=== PATIENT | female | born 1975 | race Caucasian/White ===

== ENCOUNTER 2016-10-09 12:24 | Day surgery (SDC) | payer OTHER ==
[~2016-10-09] VITALS: Ht 167.6 cm; Wt 86.4 kg
[~2016-10-09 12:24] MED LIST: FURO20TA3 PO; LORA10TA3 PO; METF500T4 PO; OMEG1CAP2 PO; OMEP20CA16 PO; RIFA550T4 PO; SPIR50TA PO
[2016-10-09 13:11] VITALS: Ht 167.6 cm; Wt 86.4 kg
[2016-10-09 13:36] VITALS: BP 99/62; PULSE 64; RESP 16
[2016-10-09] MEDS ORDERED: PROPOFOL 40 ML ONE (15:17)
[2016-10-09 16:07] VITALS: BP 123/75; PULSE 78
--- NOTE | 2016-10-09 20:57 | GILP ---
DATE OF PROCEDURE: 10/09/2016 NAME OF PROCEDURE: Esophagogastroduodenoscopy with biopsies. SURGEON: Corey Michelle MD HISTORY AND INDICATIONS: The patient is being evaluated for history of cirrhosis of liver, esophage al varices surveillance. PREMEDICATION: Monitored anesthesia care by anesthesiologist. INSTRUMENT USED: Olympus panendoscope. TECHNIQUE: After informed consent, with the patient/relatives understanding the procedure, its peg cations, potential risks and complications including but not limited to allergic reaction, bleeding, perforation or infection, and after all pertinent questions were answered to the patients satisfact ion, the patient/relatives signed witnessed informed consent. Following this, premedication was administered slowly IV push under careful cardiovascular and respi ratory monitoring with pulse oximetry, automatic blood pressure and vehicle monitor technician. Once the sedative effect was achieved the patient was place in the left lateral decubitus, the panen doscope was introduced and advanced under visual control. Careful examination of the upper gastrointestinal tract both on insertion as well as withdrawal of t he instrument disclosed the following findings: ESOPHAGUS: The esophagus is remarkable for presence of esophageal varices graded as II/IV. No stig hidalgo of recent bleeding, no banding required. STOMACH: Upon entrance to stomach, air was insufflated. The gastric light distended normally. The re is erythema, edema and congestion consistent with portal hypertensive gastropathy. Biopsies were obtained to rule out the possibility of H. pylori infection. PYLORUS: The pylorus appears patent and within normal limits, with no evidence of gastric outlet ob struction. DUODENUM: The duodenal mucosa was carefully examined in the duodenal bulb as well as the second por tion of the duodenum and appears unremarkable with no evidence of duodenitis, ulcer or neoplasm. The instrument was then withdrawn. The patient tolerated the procedure well and was transfer out of the endoscopy suite awake and in good condition to continue recovery under observation. IMPRESSION: 1. Grade II/IV esophageal varices with no stigmata. No therapeutic intervention required. 2. Portal gastropathy versus gastritis, rule out Helicobacter pylori infection. Biopsies obtained. PLAN: The patient will be continued on PPIs. Pathology will be reviewed as soon as available. Joan veillance EGD in 6 months is recommended. Dictated By: COREY MICHELLE MS/MALACHI Conf#: [id number] DID#: [id number]
== END 2016-10-09 16:23 | disposition home or self-care (01) ==
LOC: GIL 12:24
PROVIDERS: ATTEND Internal Medicine Gastroenterology
DX: I85.00 Esophageal varices without bleeding (principal); E11.9 Type 2 diabetes mellitus without complications
CPT/HCPCS: 43239; 82962; 88305; Z7610

== ENCOUNTER 2017-04-18 12:59 | Day surgery (SDC) | payer OTHER ==
[~2017-04-18] VITALS: Ht 167.6 cm; Wt 65.0 kg
[~2017-04-18 12:59] MED LIST changes: -RIFA550T4 PO
[2017-04-18 13:18] VITALS: Ht 167.6 cm; Wt 65.0 kg
[2017-04-18] MEDS ORDERED: PROPOFOL 40 ML ONE (16:34)
--- NOTE | 2017-04-18 16:46 | OPPN ---
Date/Time of Note Date/Time of Note DATE: 04/18/17 TIME: 16:41 Proc Note GI Procedure Date 04/18/17 Indication: other (Surveillance for esophageal varices) Pre-procedure Diagnosis Surveillance esophageal varices Post-procedure Diagnosis Impression: Grade I/IV distal esophagus Portal gastropathy Moderate gastritis. Rule H pylori. Biopsies obtained Plan: Continue present regimen Review pathology Surveillance EGD in 6 months . Procedure Performed: Other (EGD with biopsies) Surgeon SHAHEEN THOMASON MD See signature line Portrait Painter none Anesthesia Type: MAC Anesthesiologist: CAROLINA GUERRIER MD Tourniquet Time none EBL none Transfusion required none Biopsy 1: Gastric body and antrum Grafts/Implants none Tubes/Drains none Complication(s) none Disposition: home Procedure Description Preoperative Diagnosis: After informed consent, with the patient/relatives understanding the procedure, its indications, potential risks and complications, including but not limited to : allergic reaction, bleeding, perforation or infection, and after all pertinent questions were answered to the patients satisfaction, the patient/ relatives signed witnessed informed consent. Following this, premedication was administered slowly IV push under careful cardiovascular and respiratory monitoring with pulse oximetry, automatic blood pressure, and wheel lacer and truer. Once the sedative effect was achieved the patient was place in the left lateral decubitus, the panendoscope was introduced and advanced under visual control. Careful examination of the upper gastrointestinal tract, both on insertion as well as withdrawal of the instrument disclosing the following findings: ESOPHAGUS: the mucosa of the entire esophagus was carefully examined and showed the following findings: There are grade I/IV general varices. No therapeutic intervention required. Otherwise the mucosa appears within normal limits. There is no evidence of esophagitis, neoplasm, or stricture. No Hiatal Hernia identified. STOMACH: Upon entrance to the stomach air was insufflated, the gastric light distended normally. The mucosa of the fundus, body and antrum of the stomach was carefully examined both head-on and on retroflexion, and showed the following findings: There is erythema, edema and congestion of the mucosa of the entire stomach. Findings consistent with portal gastropathy. Biopsies were obtained to rule out H. pylori infection. Otherwise the mucosa appears within normal limits with no abnormalities. There is no evidence of ulcers or neoplasm. PYLORUS: The pylorus was carefully examined and showed the following findings: []the pylorus appears patent and within normal limits, with no evidence of gastric outlet obstruction. DUODENUM: The duodenal mucosa was carefully examined in the duodenal bulb as well as the second portion of the duodenum and showed the following findings: []the mucosa appears unremarkable with no evidence of duodenitis, ulcer or neoplasm. Copies To: CC: SHAHEEN THOMASON MD, MORDO MD Apr 18, 2017 16:46
[2017-04-18 16:55] VITALS: BP 100/65; PULSE 62; RESP 18
== END 2017-04-18 18:34 | disposition home or self-care (01) ==
LOC: GIL 12:59
PROVIDERS: ATTEND Internal Medicine Gastroenterology
DX: I85.00 Esophageal varices without bleeding (principal); K29.70 Gastritis, unspecified, without bleeding; K31.9 Disease of stomach and duodenum, unspecified
CPT/HCPCS: 43239; 82962; 84703; 88305; Z7610; 88312

== ENCOUNTER 2017-10-09 13:32 | Day surgery (SDC) | END 2017-10-09 17:58 | disposition home or self-care (01) ==

== ENCOUNTER 2018-07-28 16:15 | Emergency (ER) | payer OTHER ==
[~2018-07-28] VITALS: Ht 165.1 cm; Wt 115.0 kg
[~2018-07-28 16:15] MED LIST changes: +ASCO500T25 PO; +CHON250C PO; +CO Q; +METF-849 PO; -METF500T4 PO; +MULT-761 PO; +RESV50CA PO; +[UNRECOGNIZED DRUG - MIXTURE]; +[UNRECOGNIZED DRUG - OTHER]
[2018-07-28 16:35] VITALS: Ht 165.1 cm; Wt 115.0 kg
[2018-07-28] MEDS ORDERED: KETOROLAC 60 MG INJ IM STA (17:13)
--- NOTE | 2018-07-28 17:28 | ERD ---
ER Documentation Chief Complaint Chief Complaint CHRONIC BACK WITH RIGHT LEG PAIN INVOLVEMENT--WORSENING HPI Patient is a 43-year-old female with no significant medical history presenting t o the emergency department complaining of right-sided low back pain with radiation down her right leg for the past 5 weeks intermittently. Pain is rated 10/10 in severity. She has history of similar symptoms in the past. Pain began after lifting heavy objects. She took no medication for relief of symptoms. Patient denies loss of bowel or bladder function, fevers, chills. She denies any other symptoms at this time. ROS All systems reviewed and are negative except as per history of present illness. Medications Home Meds Active Scripts Naproxen* (Naprosyn*) 500 Mg Tablet, 500 MG PO BID PRN for PAIN AND/OR INFLAMMATION, #30 TAB Prov:ELLIE YEBOAH PA-C 07/28/18 Cyclobenzaprine Hcl* (Cyclobenzaprine Hcl*) 10 Mg Tablet, 10 MG PO TID, #15 TAB Prov:ELLIE YEBOAH PA-C 07/28/18 Furosemide* (Furosemide*) 20 Mg Tablet, 20 MG PO BID for 30 Days, #60 TAB 3 Refills Prov:JOSE CARLOS URIARTE 04/18/16 Reported Medications Chondroitin Sulfate A (Chondroitin Sulfate) 250 Mg Capsule, 250 MG PO, CAP 10/09/17 Multivitamin (MULTI VITAMIN DAILY) 1 Each Tablet, 1 TAB PO DAILY, TAB 10/09/17 Resveratrol (Resveratrol) 50 Mg Capsule, 50 MG PO, CAP 10/09/17 [Co Q10 Daily] No Conflict Check 10/09/17 Ascorbate Calcium (Calcium Ascorbate) 500 Mg Tablet, 500 MG PO, TAB 10/09/17 [Vit. D & E] No Conflict Check 10/09/17 [B12 Daily] No Conflict Check 10/09/17 Omeprazole* (Omeprazole*) 20 Mg Capsule.dr, 20 MG PO DAILY, #30 CAP 04/05/16 [place]-3 Acid Ethyl Esters (Lovaza) 1 Gm Capsule, 2 GM PO BID, CAP 04/05/16 Spironolactone* (Aldactone*) 50 Mg Tablet, 50 MG PO BID, #60 TAB 04/05/16 Loratadine* (Loratadine*) 10 Mg Tablet, 10 MG PO DAILY, #30 TAB 04/05/16 Metformin* (Glucophage*) 500 Mg Tab, 500 MG PO DAILY, #30 TAB 04/05/16 Allergies Allergies: Coded Allergies: No Known Allergy (Unverified , 10/09/16) PMhx/Soc History of Surgery: Yes (LASER SX.) Anesthesia Reaction: No Hx Neurological Disorder: No Hx Respiratory Disorders: No Hx Cardiac Disorders: No Hx Psychiatric Problems: No Hx Miscellaneous Medical Probl: Yes (LIVER CIRRHOSIS) Hx Alcohol Use: Yes Hx Substance Use: No Hx Tobacco Use: Yes Smoking Status: Former smoker FmHx Family History: No diabetes Physical Exam Vitals Vital Signs Date Temp Pulse Resp B/P (MAP) Pulse Ox O2 O2 Flow FiO2 Time Delivery Rate 07/28/18 76 18 134/68 98 Room Air 17:50 (90) 07/28/18 98.7 82 18 141/87 96 16:35 (105) Physical Exam Const: No acute distress Head: Atraumatic Eyes: Normal Conjunctiva ENT: Normal External Ears, Nose and Mouth. Neck: Full range of motion. No meningismus. Resp: Clear to auscultation bilaterally Cardio: Regular rate and rhythm, no murmurs Skin: No petechiae or rashes Back: Tenderness to palpation of the paraspinal muscles of the lumbar spine on the right. Positive straight leg raise on the right. Neur: Awake and alert Psych: Normal Mood and Affect Results 24 hrs Laboratory Tests Test 07/28/18 17:24 POC Beta HCG, Qualitative NEGATIVE Current Medications Medications Dose Sig/Soraya Start Time Status Last (Trade) Ordered Route PRN Stop Time Admin Dose Reason Admin Ketorolac 60 mg ONCE STAT 07/28/18 DC 07/28/18 Tromethamine IM 17:13 17:29 (Toradol) 07/28/18 17:14 10 mg ONCE ONCE 07/28/18 DC 07/28/18 Dexamethasone IM 17:30 17:29 (Decadron) 07/28/18 17:31 Procedures/MDM 43-year-old female presenting the emergency department complaining of right- sided low back pain with radiation down her right leg. History and physical examination is most consistent with low back pain with sciatica. Patient was administered Decadron and Toradol in the department good response. She was significantly improved prior to discharge. Patient's musculoskeletal symptoms have stabilized while they have been evaluated in the department and are appropriate for outpatient work up. No evidence of cauda equina, cord compression, infiltrative, or infectious etiology. No evidence of life-threatening pathology at time of discharge. Pt/family in agreement with discharge plan/diagnosis. Pt/family advised to return immediately with any new or worsening symptoms. Follow-up with primary care physician within the next 1-2 days. Patient's blood pressure was elevated (>120/80) but appears stable without evidence of hypertension emergency or urgency. The patient is to follow-up and pursue outpatient monitoring and therapy with their primary care physician within 1 week and return immediately if they have any new, worsening, or concerning symptoms. Departure Diagnosis: Primary Impression: Low back pain with sciatica Chronicity: acute Back pain laterality: right Sciatica laterality: sciatica of right side Qualified Codes: M54.41 - Lumbago with sciatica, right side Condition: Fair Additional Instructions: Follow up with your PCP within the next 1-3 days for a repeat evaluation. If you require a referral to a specialist, your Primary Care Provider may be able to provide this for you. In most patient cases, a referral is not required. If you have further questions regarding this matter, please ask your Primary Care Provider. Return the the emergency department immediately if symptoms worsen or change. If you have any questions regarding medications, ask your pharmacist or us before you leave. If any adverse reactions, occur while taking your medications, discontinue the treatment and return to the emergency department i mmediately. If any new or worsening symptoms, uncontrolled fevers, or other unexplained symptoms occur, return to the emergency department immediately. Take your medications as directed, and complete the entire course of treatment. ELLIE YEBOAH PA-C Jul 28, 2018 17:28
[2018-07-28] MEDS ORDERED: DEXAMETHASONE 10 MG/ML 1 ML INJ IM ONE (17:30)
[2018-07-28] MEDS ORDERED: NAPR-985 PO (17:42)
[2018-07-28] MEDS ORDERED: CYCL10TA7 PO (17:42)
[2018-07-28 17:50] VITALS: BP 134/68; PULSE 76; RESP 18
== END 2018-07-28 17:51 | disposition home or self-care (01) ==
LOC: FTE 16:15
DX: M54.41 Lumbago with sciatica, right side (principal); Z79.84 Long term (current) use of oral hypoglycemic drugs; Z87.891 Personal history of nicotine dependence
CPT/HCPCS: 81025; 96372; J1100; J1885; Z7502

== ENCOUNTER 2018-09-24 17:37 | Emergency (ER) | payer OTHER ==
[~2018-09-24] VITALS: Ht 177.8 cm; Wt 120.2 kg
[~2018-09-24 17:37] MED LIST changes: +CYCL10TA7 PO; +NAPR-985 PO
[2018-09-24 18:03] VITALS: Ht 177.8 cm; Wt 120.2 kg
--- NOTE | 2018-09-24 21:57 | ERD ---
ER Documentation Chief Complaint Chief Complaint Complains of hip and back pain radiating down the leg x 4 months HPI There is a 43-year-old female presents to emerge department with complaints of right ear pain that has been going on and off since July 28, 2018. Stated that she was seen. The emergency department for the same reason. Stated that she visited her primary care physician on 07/26/2017, prescribed with prednisone, Flexeril, Naprosyn, gabapentin. LMP: Denies headache, head injury, loss of consciousness, dizziness, neck pain, neck stiffness, throat pain, difficulty swallowing, difficulty breathing lying flat, shoulder pain, chest pain, back pain, abdominal pain, nausea, vomiting, constipation, diarrhea, urinary symptoms, or possibility being , loss of bowel and bladder control, trauma, injury, falls, difficulty walking due to pain, numbness or tingling sensation, calf pain, recent travel, recent major surgery in the last 3 weeks, calf pain, recent long travel, recent exposure to any illness, recent antibiotic use in the last 3 months, fever, chills, seizures. Past medical history: Surgical history: Social: Denies smoking, use of alcoholic beverages, use of illegal drugs. ROS All systems reviewed and are negative except as per history of present illness. Medications Home Meds Active Scripts Metaxalone* (Skelaxin*) 800 Mg Tablet, 800 MG PO TID PRN for MUSCLE SPASMS, #20 TAB Prov:MYCHALILABANDEMARCOAR F 09/24/18 Ibuprofen* (Motrin*) 800 Mg Tab, 800 MG PO Q6H PRN for PAIN AND OR ELEVATED TEMP, #30 TAB Prov:TRACIE COCHRAN F 09/24/18 Naproxen* (Naprosyn*) 500 Mg Tablet, 500 MG PO BID PRN for PAIN AND/OR INFLAMMATION, #30 TAB Prov:ELLIE YEBOAH PA-C 07/28/18 Cyclobenzaprine Hcl* (Cyclobenzaprine Hcl*) 10 Mg Tablet, 10 MG PO TID, #15 TAB Prov:ELLIE YEBOAH PA-C 07/28/18 Furosemide* (Furosemide*) 20 Mg Tablet, 20 MG PO BID for 30 Days, #60 TAB 3 Refills Prov:JOSE CAROLS URIARTE 04/18/16 Reported Medications Chondroitin Sulfate A (Chondroitin Sulfate) 250 Mg Capsule, 250 MG PO, CAP 10/09/17 Multivitamin (MULTI VITAMIN DAILY) 1 Each Tablet, 1 TAB PO DAILY, TAB 10/09/17 Resveratrol (Resveratrol) 50 Mg Capsule, 50 MG PO, CAP 10/09/17 [Co Q10 Daily] No Conflict Check 10/09/17 Ascorbate Calcium (Calcium Ascorbate) 500 Mg Tablet, 500 MG PO, TAB 10/09/17 [Vit. D & E] No Conflict Check 10/09/17 [B12 Daily] No Conflict Check 10/09/17 Omeprazole* (Omeprazole*) 20 Mg Capsule.dr, 20 MG PO DAILY, #30 CAP 04/05/16 [place]-3 Acid Ethyl Esters (Lovaza) 1 Gm Capsule, 2 GM PO BID, CAP 04/05/16 Spironolactone* (Aldactone*) 50 Mg Tablet, 50 MG PO BID, #60 TAB 04/05/16 Loratadine* (Loratadine*) 10 Mg Tablet, 10 MG PO DAILY, #30 TAB 04/05/16 Metformin* (Glucophage*) 500 Mg Tab, 500 MG PO DAILY, #30 TAB 04/05/16 Allergies Allergies: Coded Allergies: No Known Allergy (Unverified , 10/09/16) PMhx/Soc History of Surgery: Yes (LASER SX.) Anesthesia Reaction: No Hx Neurological Disorder: No Hx Respiratory Disorders: No Hx Cardiac Disorders: No Hx Psychiatric Problems: No Hx Miscellaneous Medical Probl: Yes (LIVER CIRRHOSIS) Hx Alcohol Use: Yes (HX OF ETOH USE) Hx Substance Use: No Hx Tobacco Use: Yes Smoking Status: Current every day smoker Physical Exam Vitals Physical Exam Const: No acute distress Head: Atraumatic Eyes: Normal Conjunctiva ENT: Normal External Ears, Nose and Mouth. Neck: Full range of motion. No meningismus. Resp: Clear to auscultation bilaterally Cardio: Regular rate and rhythm, no murmurs Abd: Soft, non tender, non distended. Normal bowel sounds Skin: No petechiae or rashes Back: No midline or flank tenderness. No CVA tenderness.. Ext: No cyanosis, or edema. Positive right straight leg test. Able to bear weight on right lower extremity. Able to bear weight on left lower extremity. Bilateral hips are stable and unremarkable. C-spine/T-spine/L-spine are midline with good and full range of motion is no swelling/deformity/bulging. Still lower extremities are less than 2 seconds. No neurovascular deficit. Ambulatory with steady gait. Neur: Awake and alert. No neurological deficit. Psych: Normal Mood and Affect Results 24 hrs Laboratory Tests Test 09/24/18 22:37 09/24/18 22:40 Urine Color YELLOW Urine Clarity CLOUDY Urine pH 5.0 Urine Specific [place] 1.009 Urine Ketones NEGATIVE mg/dL Urine Nitrite NEGATIVE mg/dL Urine Bilirubin NEGATIVE mg/dL Urine Urobilinogen NEGATIVE mg/dL Urine Leukocyte Esterase NEGATIVE Rand/ul Urine Microscopic RBC 0 /HPF Urine Microscopic WBC 1 /HPF Urine Squamous Epithelial Cells MODERATE /HPF Urine Hemoglobin NEGATIVE mg/dL Urine Glucose NEGATIVE mg/dL Urine Total Protein NEGATIVE mg/dl POC Beta HCG, Qualitative NEGATIVE Current Medications Medications Dose Sig/Soraya Start Time Status Last (Trade) Ordered Route PRN Stop Time Admin Dose Reason Admin Morphine 4 mg ONCE STAT 09/24/18 DC 09/24/18 Sulfate IM 22:03 22:44 (morphine) 09/24/18 22:04 10 mg ONCE ONCE 09/24/18 DC 09/24/18 Dexamethasone IM 22:30 22:44 (Decadron) 09/24/18 22:31 Procedures/MDM Diagnostic tests: POC urine : Negative. POC urine dipstick: Urinalysis: Reviewed. Treatment: Morphine IM. Dexamethasone IM. Re-evaluation: Denies pain. No saddle anesthesia. Ambulatory with steady gait. Patient will be picked up by family member. Differential diagnosis I have low suspicion for septic joint, hip dislocation, hip fracture, cauda equina syndrome, pyelonephritis, sepsis. Final diagnosis: Right hip pain. Sciatica. Prescription: Motrin. Skelaxin. Continue your prescribed medications from your primary care physician. Follow-up with PCP in the next 24-48 hours. Come back here in the emergency department for any new symptoms or any worsening symptoms. All questions and concerns were answered. Patient and family members verbalized understanding and agreed with plan of care. Hemodynamically stable on discharge. Departure Diagnosis: Primary Impression: Hip pain Additional Impressions: Contusion, hip Sciatica Condition: Stable Additional Instructions: Follow-up with PCP in the next 24-48 hours. Come back here in the emergency department for any new symptoms or any worsening symptoms. TRACIE COCHRAN Sep 24, 2018 21:57
[2018-09-24] MEDS ORDERED: morphine 4 MG/ML VIAL IM STA (22:03)
[2018-09-24] MEDS ORDERED: DEXAMETHASONE 10 MG/ML 1 ML INJ IM ONE (22:30)
[2018-09-24] MEDS ORDERED: META-121 PO (22:57)
[2018-09-24] MEDS ORDERED: IBUP800T48 PO (22:57)
[2018-09-24 23:06] VITALS: BP 100/52; PULSE 84; RESP 18
== END 2018-09-24 23:08 | disposition home or self-care (01) ==
LOC: FTE 17:37
DX: S70.01XA Contusion of right hip, initial encounter (principal); F17.210 Nicotine dependence, cigarettes, uncomplicated; M54.31 Sciatica, right side; X58.XXXA Exposure to other specified factors, initial encounter; Y92.9 Unspecified place or not applicable; Z79.84 Long term (current) use of oral hypoglycemic drugs
CPT/HCPCS: 81001; 81025; J1100; J2270; 96372